=== PATIENT | female | born 2000 | race Two or more races ===

== ENCOUNTER 2020-11-16 23:20 | Emergency (ER) | payer MEDICAID, OTHER | END 2020-11-17 04:35 | disposition left against medical advice (07) | LOC: ER 23:22 | DX: R51.9 Headache, unspecified (principal); M54.2 Cervicalgia; Z53.21 Procedure and treatment not carried out due to patient leaving prior to being seen by health care provider | CPT/HCPCS: 70450; 72125; 81025 ==